=== PATIENT | female | born 1990 | race Caucasian/White ===

== ENCOUNTER 2020-09-17 15:07 | Emergency (ER) | payer OTHER, SELFPAY ==
[2020-09-17] VITALS (9 sets, daily range): BP systolic 106–139; BP diastolic 71–93; PULSE 61–95; RESP 16–18; TEMP 35.8–36.1; O2SAT 95–98; BMI 37.0
--- NOTE | 2020-09-17 15:45 | ED.VIS.PSYCH ---
History of Present Illness Chief Complaint: Suicidal Informant: Patient, Family Context: Gradual Onset Conflict: Family - issues Timing: Continuous Current Severity: Severe Maximum Severity: Severe Associated Symptoms: Depressed, Decreased Interest, Decreased Concentration, Hopelessness, Suicidal Thoughts Specific plan (suicidal thought): Cut wrist Narrative: Patient has been feeling depressed concerning /relationship problems. She has been living with her mother temporarily, and her mom caught her using a pocket knife to try to cut her wrist today. The patient admits to suicidal ideation while she was doing this. She seems to want help. Mom brought her willingly. Patient has a psychiatrist that she sees for bipolar depression, she states she has not been seen anyone for counseling recently. She denies using any alcohol today, she denies using any illicit substances at all, her last tetanus was more than 10 years ago, and states the pocket knife was clean prior to using it. She denies any recent illnesses or contact with anyone with Covid that she knows of. - Past Medical History (1) Bipolar 1 disorder Status: Chronic (2) Anxiety Status: Chronic (3) Psychogenic nonepileptic seizure Status: Chronic Past Medical History - Allergies and Home Meds Allergies/Adverse Reactions: Allergies divalproex sodium [From Depakote] Adverse Reaction (Verified 09/17/20 15:12) PT UNSURE OF REACTION Primary Care Physician: [facility] Doctor,Out of [NON-STAFF] - Lives: With Family Drugs: None Review of Systems General: Denies: Chills, Fever, Sweats Eyes: Denies: Visual changes - bilaterally, Diplopia ENT: Denies: Rhinorrhea, Sore throat Cardiovascular: Denies: Chest pain, Palpitations Respiratory: Denies: Dyspnea, Cough, Dyspnea on exertion Gastrointestinal: Denies: Abdominal pain, Nausea, Vomiting, Diarrhea, Melena, Hematochezia Genitourinary: Denies: Dysuria, Hematuria, Frequency Musculoskeletal: Denies: Back pain, Extremity Pain Skin: Reports: Abrasions. Denies: Rash, Wounds Neurological: Denies: Headache, Weakness, Numbness Psych: Reports: Depression, Anxiety, Suicidal thoughts, Suicidal ideations Physical Exam Vital Signs/Narrative: Vital Signs Temp Pulse Resp BP Pulse Ox 09/17/20 15:12 96.5 F L 92 16 139/93 H 96 09/17/20 15:08 96.5 F L 95 16 139/93 H 95 Inital Vital Signs reviewed: Yes General: Well nourished, Well developed, - - Depressed appearing, in no distress, cooperative, makes good eye contact Head: Normocephalic, Atraumatic Eyes: Perrl, EOMI ENT: Moist mucous membranes, No rhinorrhea Neck: Supple, Nontender Cardiovascular: Regular rate, Regular rhythm, No murmurs Respiratory: No distress, CTA bilaterally, Chest nontender Abdomen: Soft, Nontender, Nondistended, Normal bowel sounds Back: Nontender, Normal Inspection Extremities: Nontender, No Edema Skin: Normal color, No rash, Trauma - Partial-thickness 1 cm laceration volar distal left wrist with associated abrasions, linear, no active bleeding, no sign of infection. Neurological: Alert, Oriented x3, Cranial nerves II-XII grossly intact, Normal Strength, Normal Sensation Psych: Logical sequential goal directed thoughts, Good Insight, Depressed, Flat Affect, Suicidal thoughts. Negative for: Homicidal thoughts, Hallucinations, Delusions Diagnostic/Tx/Re-eval Laboratory Results 09/17/20 09/17/20 09/17/20 15:30 15:40 15:40 WBC 7.4 RBC 4.70 Hgb 14.8 Hct 43.7 MCV 93.0 MCH 31.5 MCHC 33.9 RDW Std Deviation 45.5 H RDW Coeff of Arnel 13.3 Plt Count 317 MPV 8.9 Immature Gran % (Auto) 0.300 Neut % (Auto) 79.0 H Lymph % (Auto) 14.4 L [place] % (Auto) 5.3 Eos % (Auto) 0.7 Baso % (Auto) 0.3 Absolute Neuts (auto) 5.8 Absolute Lymphs (auto) 1.06 Nucleated RBC % 0 Sodium 138 Potassium 3.6 Chloride 104 Carbon Dioxide 26.0 Anion Gap 8 BUN 13 Creatinine 0.71 Estim Creat Clear Calc 83.98 Est GFR (MDRD) Af Amer 125 Est GFR (MDRD) Non-Af 103 BUN/Creatinine Ratio 18.3 Glucose 99 Calcium 9.5 Serum , Qual Urine Opiates Screen NEGATIVE Urine Methadone Screen NEGATIVE Ur Barbiturates Screen NEGATIVE Ur Phencyclidine Scrn NEGATIVE Ur Amphetamines Screen NEGATIVE U Methamphetamin-MDMA NEGATIVE U Benzodiazepines Scrn NEGATIVE Urine Cocaine Screen NEGATIVE U Cannabinoids Screen POSITIVE H Ur Drug Screen Comment Ethyl Alcohol 09/17/20 09/17/20 15:40 15:40 WBC RBC Hgb Hct MCV MCH MCHC RDW Std Deviation RDW Coeff of Arnel Plt Count MPV Immature Gran % (Auto) Neut % (Auto) Lymph % (Auto) [place] % (Auto) Eos % (Auto) Baso % (Auto) Absolute Neuts (auto) Absolute Lymphs (auto) Nucleated RBC % Sodium Potassium Chloride Carbon Dioxide Anion Gap BUN Creatinine Estim Creat Clear Calc Est GFR (MDRD) Af Amer Est GFR (MDRD) Non-Af BUN/Creatinine Ratio Glucose Calcium Serum , Qual NEGATIVE Urine Opiates Screen Urine Methadone Screen Ur Barbiturates Screen Ur Phencyclidine Scrn Ur Amphetamines Screen U Methamphetamin-MDMA U Benzodiazepines Scrn Urine Cocaine Screen U Cannabinoids Screen Ur Drug Screen Comment Ethyl Alcohol < 3.0 Her tetanus was updated. Her superficial laceration does not require sutures or other repair, it was cleansed and dressed with bacitracin to prevent infection. Labs and are obtained, they are negative/normal. Patient is medically cleared for crisis evaluation. Crisis evaluated and thinks the patient is appropriate to be transferred to inpatient psychiatric evaluation. She requested that I write a pink slip on the patient which I did. Patient has been cooperative and is awaiting acceptance. ED Disposition - Plan for ED Patient: Disposition: Psychiatric Hospital or Unit Diagnosis: Suicide gesture, Bipolar 1 disorder Referrals: [facility] Doctor,Out of [NON-STAFF] -
[2020-09-17 15:52] LABS: Absolute Lymphocyte Count 1.06 X10^3/uL (0.83-4.51); Absolute Neutrophil Count 5.8 X10^3/uL (2.0-7.7); Basophil# 0.02 X10^3/uL; Basophil% 0.3 % (0-1); Eosinophil# 0.05 X10^3/uL; Eosinophils% 0.7 % (0-5); Hematocrit 43.7 % (37-47); Hemoglobin 14.8 g/dL (12.0-15.0); Lymphocyte # 1.06 X10^3/ul (4.0); Lymphocyte % 14.4 % (19-41); Mean Corp Hgb Conc 33.9 g/dL (32-36); Mean Corpuscular Hgb 31.5 pg (27.0-32.0); Mean Platelet Vol. 8.9 fl (6.2-12.0); Monocyte# 0.39 X10^3/uL; Monocyte% 5.3 % (0-10); NRBC Flagged by Analyzer 0 % (0-5); Neutrophil # 5.82 X10^3/uL (2.7-7.7); Platelet Count 317 K/mm3 (150-450); RBC Distribution Width CV 13.3 % (11.6-14.6); RBC Distribution Width SD 45.5 fl (35.1-43.9); White Blood Count 7.4 K/mm3 (4.4-11.0)
[2020-09-17] MEDS: Diphth,Pertuss(Acell),Tet Vac 0.5 ML Vial IM (15:58)
[2020-09-17 16:01] LABS: Internal QC Validated? YES +Cl - CLEAR BKGD; Pregnancy, Serum, hCG Quali. NEGATIVE Negative
[2020-09-17 16:06] LABS: Anion Gap 8 (5-15); BUN 13 mg/dL (7-18); BUN/Creat Ratio 18.3 RATIO (10-20); Calcium,Total 9.5 mg/dL (8.5-10.1); Chloride 104 mmol/L (98-107); Creatinine, Serum 0.71 mg/dL (0.55-1.02); EST Glomerular Filtration Rate 103 mL/min (>60); Est Glom Filt Rate - Afr Amer 125 mL/min (>60); Estimated Creatinine Clearance 83.98 ml/min; Glucose 99 mg/dL (74-106); Potassium 3.6 mmol/L (3.5-5.1); Sodium Level 138 mmol/L (136-145)
[2020-09-17 16:09] LABS: Alcohol, Blood (Medical)-Serum < 3.0 mg/dL
[2020-09-17 16:29] LABS: Amphetamine Urine VISTA NEGATIVE (<1000 ng/mL); Barbiturate Urine VISTA NEGATIVE (< 200 ng/mL); Benzodiazepine Urine VISTA NEGATIVE (< 200 ng/mL); Cocaine Urine VISTA NEGATIVE (< 300 ng/mL); Ecstacy Urine VISTA NEGATIVE (< 500 ng/mL); Methadone Urine VISTA NEGATIVE (< 300 ng/mL); PCP Urine VISTA NEGATIVE (< 25 ng/mL); THC Urine VISTA POSITIVE (< 50 ng/mL); Vista UDS pH Range 7
--- NOTE | 2020-09-17 20:40 | ED.RN ---
patient has been refereed to [facility] waiting for acceptance at this time
== END 2020-09-17 22:11 ==
PROVIDERS: Emergency Provider Emergency Medicine; PCP Family Medicine
DX: S61.512A Laceration without foreign body of left wrist, initial encounter (principal); X78.1XXA Intentional self-harm by knife, initial encounter; Y93.9 Activity, unspecified; Y92.9 Unspecified place or not applicable; F31.9 Bipolar disorder, unspecified; F41.9 Anxiety disorder, unspecified; F44.5 Conversion disorder with seizures or convulsions; Z79.899 Other long term (current) drug therapy
CPT/HCPCS: 80048; 80307; 82077; 84703; 85025; 87426; 90715; 99285